=== PATIENT | male | born 1995 | race Caucasian/White ===

== ENCOUNTER 2017-06-17 18:42 | Emergency (ER) | payer SELFPAY ==
[2017-06-17 19:20] VITALS: BP 125/52
--- NOTE | 2017-06-17 19:22 | UC ---
Throat Pain/Nasal Huber HPI - HPI Summary HPI Summary: 21 year old male presents with complains of sore throat and tonsil inflammation. - History of Current Complaint Chief Complaint: UCGeneralIllness Stated Complaint: VOMITING,SORE THROAT, HEADACHE Time Seen by Provider: 06/17/17 19:22 Hx Obtained From: Patient Onset/Duration: Sudden Onset Severity: Moderate Pain Scale Used: 0-10 Numeric - 8 - Allergies/Home Medications Allergies/Adverse Reactions: Allergies Allergy/AdvReac Type Severity Reaction Status Date / Time THERAFLU Allergy Hives Uncoded 06/17/17 19:20 Home Medications: Home Medications Ibuprofen TAB* [Advil TAB*] 400 mg PO Q6H PRN 06/17/17 [History Confirmed ] PMH/Surg Hx/FS Hx/Imm Hx Previously Healthy: Yes Other History Of: Negative For: HIV, Hepatitis B, Hepatitis C, Anticoagulant Therapy - Surgical History Surgical History: Yes Surgery Procedure, Year, and Place: RIGHT HAND SX - Family History Known Family History: Positive: Cardiac Disease, Diabetes - Social History Alcohol Use: Weekly Substance Use Type: Marijuana Substance Use Comment - Amount & Last Used: OCCASSIOANLLY Smoking Status (MU): Never Smoked Tobacco Review of Systems Constitutional: Negative Skin: Negative Eyes: Negative ENT: Sore Throat, Nasal Discharge, Sinus Congestion, Sinus Pain/Tenderness Respiratory: Negative Cardiovascular: Negative Gastrointestinal: Negative Genitourinary: Negative Motor: Negative Neurovascular: Negative Musculoskeletal: Negative Neurological: Negative Psychological: Negative All Other Systems Reviewed And Are Negative: Yes Physical Exam Triage Information Reviewed: Yes Vital Signs: Initial Vital Signs Temp 38.2 C 06/17/17 19:14 Pulse 87 06/17/17 19:14 Resp 14 06/17/17 19:14 BP 125/52 06/17/17 19:14 Pulse Ox 99 06/17/17 19:14 Vital Signs Reviewed: Yes Eye Exam: Normal ENT Exam: Normal Dental Exam: Normal Neck exam: Normal Neck: Positive: 1 Respiratory Exam: Normal Cardiovascular Exam: Normal Abdominal Exam: Normal Musculoskeletal Exam: Normal Neurological Exam: Normal Psychological Exam: Normal Skin Exam: Normal Throat Pain/Nasal Course/Dx - Differential Dx/Diagnosis Provider Diagnoses: tonsillitis. pharyngeal erythema Discharge - Discharge Plan Condition: Stable Disposition: HOME Prescriptions: Clindamycin Cap(NF) [Clindamycin Cap 300 mg Cap(NF)] 300 mg PO TID #30 cap LoraTADine TAB(NF) [Claritin 10 MG TAB(NF)] 10 mg PO DAILY #30 tab Magic M W2 Alejo/Maal/Nyst/Lido* 5 ml SWISH SPIT QID PRN #120 ml PRN Reason: Pain Methylprednisolone [Medrol Dosepak 4 MG*] 4 mg PO .SEE FALGUNI INSTRUCTION #21 tab Patient Education Materials: Pharyngitis (ED), Tonsillitis (ED) Referrals: Non Staff,Doctor [Primary Care Provider] -
== END 2017-06-17 19:54 | disposition home or self-care (01) ==
LOC: UCCORT 18:42
DX: J03.90 Acute tonsillitis, unspecified (principal); J39.2 Other diseases of pharynx; F12.90 Cannabis use, unspecified, uncomplicated
CPT/HCPCS: 87070; 87651; 99211; G0463

== ENCOUNTER 2017-11-11 13:07 | Emergency (ER) | payer OTHER ==
[2017-11-11 14:19] VITALS: BP 122/69
[2017-11-11] MEDS ORDERED: Ibuprofen ADULT LIQ* 600 MG/30 ML UDC PO ONE (14:32)
--- NOTE | 2017-11-11 14:32 | UC ---
UC General HPI - HPI Summary HPI Summary: pt is c/o fever, chills, sore throat and some nausea with vomiting. the n/v has stopped. no diarrhea onset last pm. - History of Current Complaint Chief Complaint: UCGI Stated Complaint: ACHY,VOMITING,ST,EARS Time Seen by Provider: 11/11/17 14:25 Hx Obtained From: Patient Onset/Duration: Gradual Onset Timing: Constant Pain Intensity: 6 Aggravating: nothing Alleviating: nothing Associated Signs & Symptoms: Positive: Fever, Nausea, Vomiting - Allergy/Home Medications Allergies/Adverse Reactions: Allergies Allergy/AdvReac Type Severity Reaction Status Date / Time THERAFLU Allergy Hives Uncoded 11/11/17 14:16 PMH/Surg Hx/FS Hx/Imm Hx Endocrine History: Thyroid Disease Other History Of: Negative For: HIV, Hepatitis B, Hepatitis C, Anticoagulant Therapy - Surgical History Surgical History: Yes Surgery Procedure, Year, and Place: RIGHT HAND SX - Family History Known Family History: Positive: Cardiac Disease, Diabetes - Social History Occupation: Student Lives: Dormitory/Roommates Alcohol Use: Weekly Substance Use Type: Marijuana Substance Use Comment - Amount & Last Used: OCCASSIOANLLY Smoking Status (MU): Never Smoked Tobacco - Immunization History Vaccination Up to Date: Yes Review of Systems Constitutional: Fever, Chills Skin: Negative Eyes: Negative ENT: Sore Throat Respiratory: Negative Cardiovascular: Negative Gastrointestinal: Vomiting, Nausea Genitourinary: Negative Motor: Negative Neurovascular: Negative Musculoskeletal: Negative Neurological: Negative Psychological: Negative Is Patient Immunocompromised?: No All Other Systems Reviewed And Are Negative: Yes Physical Exam Triage Information Reviewed: Yes Appearance: Ill-Appearing - but non toxic Vital Signs: Initial Vital Signs Temp 99.8 F 11/11/17 14:14 Pulse 90 11/11/17 14:14 Resp 18 11/11/17 14:14 BP 122/69 11/11/17 14:14 Pulse Ox 99 11/11/17 14:14 Vital Signs Reviewed: Yes Eyes: Positive: Conjunctiva Clear ENT: Positive: Pharyngeal erythema, TMs normal, Tonsillar exudate, Uvula midline. Negative: Nasal congestion, Nasal drainage, Trismus, Muffled voice, Hoarse voice Neck: Positive: Supple, Tenderness @ - peritonsilar, Enlarged Nodes @ - pertonsilar Respiratory: Positive: Lungs clear, Normal breath sounds Cardiovascular: Positive: RRR, No Murmur Abdomen Description: Positive: Nontender, No Organomegaly, Soft Bowel Sounds: Positive: Present Musculoskeletal: Positive: ROM Intact Neurological: Positive: Alert Psychological: Positive: Age Appropriate Behavior Skin Exam: Normal Diagnostics - Laboratory Diagnostic Studies Completed/Ordered: rapid strep=neg, tc and cbc/mono are pending. i think the pt hx and pe are concerning for a bacterial source thus I am going to tx presumptively. will tx with zithromax in case + for mono. need for close f/u stressed. Re-Evaluation - Re-Evaluation Second Eval Re-Evaluation Time: 15:10 Change: Improved - looks a little improved, taking po fluids Course/Dx - Course Course Of Treatment: see diagnostic area - Differential Dx - Multi-Symptom Provider Diagnoses: pharyngitis Discharge - Sign-Out/Discharge Documenting (check all that apply): Discharge - Discharge Plan Condition: Stable Disposition: HOME Prescriptions: Azithromycin 500 mg PO DAILY 5 Days #5 tablet Forms: *School Release Referrals: Non Staff,Doctor [Primary Care Provider] - Additional Instructions: FOLLOW UP [facility] FOR A RECHECK IN 3 DAYS OR SOONER IF WORSE. - Billing Disposition and Condition Condition: STABLE Disposition: HOME
[2017-11-11 19:34] LABS: ABS Basophils 0 10^3/ul (0-0.2); ABS Eosinophils 0 10^3/ul (0-0.6); ABS Lymphocytes 0.7 10^3/ul (1.0-4.8); ABS Monocytes 1.4 10^3/ul (0-0.8); ABS Neutrophils 13.4 10^3/ul (1.5-7.7); ABS Nucleated RBC 0 10^3/ul; Eosinophil % 0 % (0-6); Hematocrit 42 % (42-52); Hemoglobin 14.7 g/dl (14.0-18.0); Lymphocyte % 4.4 % (25-47); Mean Corpuscular HGB Conc 35 g/dl (31-36); Mean Corpuscular Hemoglobin 31 pg (27-31); Mean Corpuscular Volume 88 fL (80-94); Nucleated Red Blood Cells % 0; Platelet Count 159 10^3/ul (150-450); Red Blood Count 4.77 10^6/ul (4.0-5.4); Red Cell Distribution Width 13 % (10.5-15); White Blood Count 15.5 10^3/ul (3.5-10.8)
--- NOTE | 2017-11-12 07:42 | UC ---
- Progress Note Progress Note: RN to call pt. CBC and monospot reviewed. WBC elevated 15.5. See [facility] re details. Monospot negative. F/u with primary provider as recommended at Urgent care visit 11/11/17. If worse or no better, seek medical attention today. Re-Evaluation - Re-Evaluation Second Eval Re-Evaluation Time: 15:10 Change: Improved - looks a little improved, taking po fluids Discharge - Sign-Out/Discharge Documenting (check all that apply): Discharge - Discharge Plan Condition: Stable Disposition: HOME Prescriptions: Azithromycin 500 mg PO DAILY 5 Days #5 tablet Patient Education Materials: Pharyngitis (ED) Forms: *School Release Referrals: Non Staff,Doctor [Primary Care Provider] - Additional Instructions: FOLLOW UP [facility] FOR A RECHECK IN 3 DAYS OR SOONER IF WORSE. - Billing Disposition and Condition Condition: STABLE Disposition: HOME
== END 2017-11-11 15:26 | disposition home or self-care (01) ==
LOC: UCCORT 13:07
DX: J02.9 Acute pharyngitis, unspecified (principal); R50.9 Fever, unspecified; R11.2 Nausea with vomiting, unspecified; E07.9 Disorder of thyroid, unspecified; Z88.8 Allergy status to other drugs, medicaments and biological substances
CPT/HCPCS: 36415; 85025; 86308; 86664; 86665; 87070; 87077; 87651; 99212; A9270-GY; G0463

== ENCOUNTER 2017-11-13 11:52 | Emergency (ER) | payer OTHER ==
[2017-11-13 12:32] VITALS: BP 114/71
--- NOTE | 2017-11-13 12:36 | UC ---
Throat Pain/Nasal Huber HPI - HPI Summary HPI Summary: Patient seen here 2 days ago diagnosed with bacterial pharyngitis. Patient reports he had symptoms the begun Saturday 3 days ago. Patient's rapid strep test was negative, mono test was negative with blood cell count was 15.8. Patient's here for reevaluation because he does not get any better - History of Current Complaint Chief Complaint: UCGeneralIllness Stated Complaint: ST/ACHY Time Seen by Provider: 11/13/17 12:34 Hx Obtained From: Patient Onset/Duration: Sudden Onset, Lasting Days - 3, Still Present Severity: Moderate Pain Intensity: 7 Pain Scale Used: 0-10 Numeric Cough: None - Initial Associated Signs & Symptoms: Positive: Nasal Discharge, Other - Cough sinus and ear congestion - Allergies/Home Medications Allergies/Adverse Reactions: Allergies Allergy/AdvReac Type Severity Reaction Status Date / Time THERAFLU Allergy Hives Uncoded 11/13/17 12:32 PMH/Surg Hx/FS Hx/Imm Hx Previously Healthy: No - has had perimeningitis, and fractured right hand Other History Of: Negative For: HIV, Hepatitis B, Hepatitis C, Anticoagulant Therapy - Surgical History Surgical History: Yes Surgery Procedure, Year, and Place: RIGHT HAND SX - Family History Known Family History: Positive: Cardiac Disease, Diabetes - Social History Occupation: Student Lives: With Family Alcohol Use: Weekly Substance Use Type: Marijuana Substance Use Comment - Amount & Last Used: OCCASSIOANLLY Smoking Status (MU): Never Smoked Tobacco - Immunization History Vaccination Up to Date: Yes Review of Systems Constitutional: Chills, Fatigue Skin: Negative Eyes: Negative ENT: Ear Ache, Nasal Discharge Respiratory: Cough Cardiovascular: Negative Gastrointestinal: Negative Genitourinary: Negative Motor: Negative Neurovascular: Negative Musculoskeletal: Negative Neurological: Negative Psychological: Negative Is Patient Immunocompromised?: No All Other Systems Reviewed And Are Negative: Yes Physical Exam Triage Information Reviewed: Yes Appearance: Well-Nourished, Ill-Appearing - mild, Pain Distress - mild Vital Signs: Initial Vital Signs Temp 98.4 F 11/13/17 12:28 Pulse 87 11/13/17 12:28 Resp 16 11/13/17 12:28 BP 114/71 11/13/17 12:28 Pulse Ox 100 11/13/17 12:28 Vital Signs Reviewed: Yes Eye Exam: Normal Eyes: Positive: Conjunctiva Clear ENT Exam: Normal ENT: Positive: Normal ENT inspection, Hearing grossly normal, Pharynx normal, Nasal congestion, Nasal drainage, Tonsillar swelling, Tonsillar exudate - Left tonsil, Uvula midline, Other - On able to visualize TMs due to [place] will irrigate ears and reassess. Negative: Trismus, Muffled voice, Hoarse voice, Dental tenderness, Sinus tenderness Dental Exam: Normal Neck exam: Normal Neck: Positive: Supple, Nontender, No Lymphadenopathy Respiratory Exam: Normal Respiratory: Positive: Chest non-tender, Lungs clear, Normal breath sounds, No respiratory distress, No accessory muscle use Cardiovascular Exam: Normal Cardiovascular: Positive: RRR, No Murmur, Pulses Normal, Brisk Capillary Refill Musculoskeletal Exam: Normal Musculoskeletal: Positive: Strength Intact, ROM Intact, No Edema Neurological Exam: Normal Neurological: Positive: Alert, Muscle Tone Normal Psychological Exam: Normal Skin Exam: Normal Re-Evaluation - Re-Evaluation First Eval Change: Improved - cerumen from ears flushed , tm wnl Throat Pain/Nasal Course/Dx - Course Assessment/Plan: stop zithromax mucinex D, flonase, diet for diarrhea, follow with [facility] prn - Differential Dx/Diagnosis Provider Diagnoses: cerumen impaction, acute diarrhea, viral upper respiratory infection Discharge - Sign-Out/Discharge Documenting (check all that apply): Discharge - Discharge Plan Condition: Stable Disposition: HOME Prescriptions: Fluticasone NASAL SPRAY 50MCG* [Flonase NASAL SPRAY 50MCG*] 2 spray BOTH NARES DAILY #1 btl Patient Education Materials: Decongestant/Expectorant (By mouth), Cerumen Impaction (ED), Acute Diarrhea (ED), Viral Syndrome (ED), Nutrition Tips for Relief of Diarrhea (ED) Referrals: [facility] [Outside] - 3 Days - Billing Disposition and Condition Condition: STABLE Disposition: HOME
== END 2017-11-13 13:19 | disposition home or self-care (01) ==
LOC: UCCORT 11:52
DX: H61.20 Impacted cerumen, unspecified ear (principal); R19.7 Diarrhea, unspecified; J06.9 Acute upper respiratory infection, unspecified; Z88.7 Allergy status to serum and vaccine
CPT/HCPCS: 99213; G0463

== ENCOUNTER 2018-10-26 16:53 | Emergency (ER) | payer OTHER | END 2018-10-26 17:18 | disposition left against medical advice (07) | LOC: UCCORT 16:53 | DX: Z53.21 Procedure and treatment not carried out due to patient leaving prior to being seen by health care provider (principal) ==